=== PATIENT | female | born 1985 | race Caucasian/White ===

== ENCOUNTER 2023-07-28 09:15 | Emergency (ER) | payer OTHER ==
[2023-07-28 09:21] VITALS: BMI 19.3
[2023-07-28] MEDS ORDERED: ACETAMINOPHEN 1000 MG/100 ML BAG IVPB ONE (09:44)
[2023-07-28] MEDS ORDERED: SODIUM CHLORIDE 0.9% 500 ML INFUS.BAG IV ONE (09:44)
[2023-07-28] MEDS ORDERED: ACETAMINOPHEN INJECTION 100 ML IVPB ONE (10:12)
[2023-07-28 10:44] LABS: HEMATOCRIT 39.8 % (32.4-45.2); HEMOGLOBIN 13.6 GM/dL (10.7-15.3); MCH 31.4 pg (25.7-33.7); MCHC 34.3 g/dl (32.0-36.0); MEAN CELL VOLUME 91.6 fl (80-96); MEAN PLT VOLUME 9.2 fl (7.5-11.1); PLATELET COUNT 297 10^3/uL (134-434); RBC 4.34 M/mm3 (3.60-5.2); RDW 13.2 % (11.6-15.6); WHITE BLOOD COUNT 20.7 K/mm3 (4.0-10.0)
[2023-07-28 10:50] LABS: INR 1.06 (0.83-1.09); PROTHROMBIN TIME (PATIENT) 12.3 SEC (9.7-13.0)
[2023-07-28 10:52] LABS: ACTIVATED PTT 26.8 SECONDS (25.2-36.5)
[2023-07-28 10:53] LABS: POTASSIUM 4.2 mmol/L (3.5-5.1)
[2023-07-28 10:55] LABS: ALBUMIN 3.2 g/dl (3.4-5.0); BLOOD UREA NITROGEN 8.7 mg/dL (7-18); CALCIUM 8.3 mg/dL (8.5-10.1)
[2023-07-28 10:59] LABS: CREATININE 0.6 mg/dL (0.55-1.3)
[2023-07-28 11:00] LABS: BILIRUBIN,TOTAL 0.4 mg/dL (0.2-1); TOT PROT 6.7 g/dl (6.4-8.2)
[2023-07-28 11:20] LABS: ANISOCYTOSIS 1+; MACROCYTOSIS 0
[2023-07-28] MEDS ORDERED: CEFTRIAXONE 1,000 MG in DEXTROSE 5%-WATER - 50 ML IVPB ONE ×2 (12:10→12:26)
[2023-07-28] MEDS ORDERED: AZITHROMYCIN IVPB 500 MG in DEXTROSE 5%-WATER - 250 ML IVPB ONE (12:10)
[2023-07-28] MEDS ORDERED: CEFTRIAXONE 1 GM/50 ML BAG ONE (12:19)
[2023-07-28] MEDS ORDERED: KETOROLAC TROMETHAMINE 15 MG/ML VIAL IVPUSH ONE (12:26)
[2023-07-28] MEDS ORDERED: KETOROLAC TROMETHAMINE 15 MG/ML VIAL ONE (12:38)
[2023-07-28] MEDS ORDERED: AZITHROMYCIN IVPB 500 MG/250 ML BAG IVPB ONE (13:03)
[2023-07-28 13:25] VITALS: TEMP 97.8
[2023-07-28 14:31] VITALS: BP 98/60; PULSE 100; RESP 18
== END 2023-07-28 14:31 | disposition home or self-care (01) ==
LOC: JER 09:15
DX: R07.81 Pleurodynia (principal); R00.0 Tachycardia, unspecified; J18.9 Pneumonia, unspecified organism
CPT/HCPCS: 36415; 71275-TC; 80053; 84484; 84703; 85025; 85610; 85730; 86850; 86900; 86901; 93005; 93010; 99285-25; Q9967